=== PATIENT | female | born 1975 | race African-American/Black ===

== ENCOUNTER 2021-10-26 07:22 | Outpatient (CLI) | payer BC ==
--- NOTE | 2021-10-26 10:33 | Ultrasound Report ---
PROCEDURE: Pelvic w/Transvaginal INDICATIONS: LEFT OVARIAN LESION TECHNIQUE: Real-time scanning was performed of the pelvic organs, with image documentation. Additional endovagi nal scanning was necessary due to incomplete visualization of the adnexal and endometrial structures by transabdominal scanning. COMPARISON: 10/10/2021 CT FINDINGS: Uterus: History of partial hysterectomy. Ovaries: Not well seen due to patient body habitus and bowel gas artifact. No large mass or large cys t is identified. Other: No pathologic free abdominal or pelvic fluid. IMPRESSION: Limited examination due to patient factors as described above. The ovaries not well seen . No large mass identified. History of partial hysterectomy. Reviewed by: Jai Hoover MD on 10/26/2021 10:31 AM PDT Approved by: Jai Hoover MD on 10/26/2021 10:31 AM PDT Station ID: [id number]
== END 2021-10-26 07:23 | disposition home or self-care (01) ==
LOC: DI 07:22
PROVIDERS: ATTEND Physician Assistant
DX: N83.9 Noninflammatory disorder of ovary, fallopian tube and broad ligament, unspecified (principal); Z90.710 Acquired absence of both cervix and uterus

== ENCOUNTER 2022-01-04 08:00 | Outpatient (CLI) | payer BC ==
[2022-01-04 22:41] LABS: BACTERIAL VAGINOSIS DNA POSITIVE (NEGATIVE); CANDIDA GLABRATA DNA NEGATIVE (NEGATIVE); CANDIDA GROUP DNA NEGATIVE (NEGATIVE); CANDIDA KRUSEI DNA NEGATIVE (NEGATIVE); TRICHOMONAS VAGINALIS DNA POSITIVE (NEGATIVE)
[2022-01-04 23:38] LABS: CHLAMYDIA TRACHOMATIS DNA NEGATIVE (NEGATIVE); NEISSERIA GONORRHOEAE DNA NEGATIVE (NEGATIVE)
== END 2022-01-04 23:59 | disposition home or self-care (01) ==
LOC: LAB.N 08:00
PROVIDERS: ATTEND Registered Nurse
DX: L29.2 Pruritus vulvae (principal); R82.79 Other abnormal findings on microbiological examination of urine
CPT/HCPCS: 81514; 87086; 87491; 87591; 87661